=== PATIENT | female | born 1935 | race Caucasian/White ===

== ENCOUNTER 2021-07-12 11:48 | Emergency (ER) | payer OTHER ==
[~2021-07-12] VITALS: Ht 154.9 cm; Wt 68.0 kg
[~2021-07-12 11:48] MED LIST: PARA LA PRESION
[2021-07-12] MEDS ORDERED: COZAAR100 MG (11:59)
[2021-07-12] MEDS ORDERED: NAMENDA10 MG (12:00)
[2021-07-12] MEDS ORDERED: ATORVASTATIN CA20 MG (12:00)
[2021-07-12] MEDS ORDERED: EXELON1 EAC1 (12:00)
== END 2021-07-12 15:29 | disposition home or self-care (01) ==
LOC: ER
DX: U07.1 COVID-19 (principal); R55 Syncope and collapse; I10 Essential (primary) hypertension; E78.00 Pure hypercholesterolemia, unspecified; G30.9 Alzheimer's disease, unspecified; F02.80 Dementia in other diseases classified elsewhere, unspecified severity, without behavioral disturbance, psychotic disturbance, mood disturbance, and anxiety